=== PATIENT | female | born 1955 | race Caucasian/White ===

== ENCOUNTER → 2018-03-11 | Outpatient (CLI) | payer MEDICAID ==
[~2018-03-11] MED LIST: AUGMENTIN 875 M1 TA1 PO; AUGMENTIN 875875 MG PO; B12,B-12,B 12500 MCG PO; CELEXA20 MG PO; CIPRO250 MG PO; CIPROFLOXACIN500 MG PO; Carafate1 GM/10 ML PO; DICLOFENAC POTA50 MG PO; DICLOFENAC SOD75 MG PO; DIPHENHYDRAMINE50 MG PO; FEOSOL300 MG PO; GEMFIBROZIL600 MG PO; GLIPIZIDE5 MG PO; KEFLEX500 MG PO; LEXAPRO20 MG PO; MAXALT MLT PO; MAXALT-MLT10 MG PO; METFORMIN1000 MG PO; MIRTAZAPINE15 M1 PO; MOTRIN800 MG PO; PHENERGAN25 M1 PO; PRAVASTATIN SOD20 MG PO; PRENATAL1 TA7 PO; PROTONIX TR40 MG PO; PROVIGIL200 MG PO; SYNTHROID,LEVO25 MCG PO; VOLTAREN75 MG PO
== END | disposition home or self-care (01) ==
LOC: MAMMO 08:12
DX: Z12.31 Encounter for screening mammogram for malignant neoplasm of breast (principal)

== ENCOUNTER 2018-10-08 20:23 | Inpatient (IN) | payer OTHER ==
--- NOTE | ~2018-10-08 | EKG ---
[place], [place] ELECTROCARDIOGRAM REPORT NAME: FOREST JUAREZ UNIT #: [id number] ROOM: 407 DOCTOR: IVELISSE DRAFT REPORT BIRTHDATE: [birth year] [facility] Test Date: 2018-10-08 Test Time: 20:39:05 Pat Name: FOREST JUAREZ Department: Room: 407 Gender: F Art Specialist: Carlos Neves : 1955 Requested By: MERLIN URENA PA-C Order Number: [id number] Reading MD: Angel Houston Measurements Intervals [place] Rate: 71 P: 65 PA: 183 QRS: 45 QRSD: 115 T: 52 QT: 388 QTc: 422 Interpretive Statements Sinus rhythm Nonspecific intraventricular conduction delay Electronically Signed On 10-15-2018 7:27:47 PST by Angel Houston CM:EKGRPT:ELECTROCARDIOGRAM REPORT [id number] MERLIN URENA PA-C EPIPHANY DRAFT REPORT MERLIN URENA PA-C
[~2018-10-08 20:23] MED LIST changes: +GLUCOPHAGE500 M1 PO; -METFORMIN1000 MG PO
[2018-10-08 20:25] VITALS: BP 128/68
[2018-10-08 21:00] LABS: BASO # 0.1 10*3/uL (0.0-0.1); BASO % 1.1 % (0.0-1.0); EOS # 0.3 10*3/uL (0.0-0.4); EOS % 3.4 % (1.0-4.0); HEMOGLOBIN 14.7 g/dl (12.0-16.0); LYMPH # 3.2 10*3/uL (1.3-4.4); LYMPH % 35.8 % (27.0-41.0); MEAN CELL VOLUME 89.4 fl (81.0-99.0); MEAN CORPUSCULAR HGB 29.9 pg (27.0-31.0); MEAN CORPUSCULAR HGB CONC 33.4 g/dl (33.0-37.0); MONO # 0.5 10*3/uL (0.1-1.0); MONO % 5.4 % (3.0-9.0); NEUT # 4.8 10*3/uL (2.3-7.9); PLATELET COUNT AUTOMATED 350 10*3/uL (130-400); RED BLOOD COUNT 4.92 10*6/uL (4.10-5.10); RED CELL DISTRI WIDTH 12.4 % (0-14.5); WHITE BLOOD COUNT 8.9 10*3/uL (4.8-10.8)
--- NOTE | 2018-10-08 21:09 | NUR ---
NOTIFIED DR REBOLLEDO LACTIC ACID 4.8
[2018-10-08 21:10] LABS: ACT PARTIAL THROMBO TIME 21.2 SECONDS (20.8-31.5)
[2018-10-08 21:15] LABS: ALBUMIN 3.9 gm/dl (3.1-4.5); ALKALINE PHOSPHATASE 82 U/L (45-117); BUN 12 mg/dl (7-24); CHLORIDE 103 mmol/L (98-107); CREATININE 1.04 mg/dL (0.55-1.02); LIPASE 218 U/L (73-393); POTASSIUM 3.6 mmol/L (3.5-5.1); SGOT/AST 10 IU/L (3-35); SGPT/ALT 18 U/L (12-78); SODIUM 138 mmol/L (136-145); TOTAL PROTEIN 7.2 gm/dL (6.4-8.2)
[2018-10-08 21:22] LABS: TROPONIN I < 0.015 ng/ml (<0.045)
--- NOTE | 2018-10-08 21:25 | NUR ---
PER MD REBOLLEDO PT FLUID RATE OF NS INCREASED TO 999ML/HR.
[2018-10-08 21:28] VITALS: BP 134/66
[2018-10-08 21:35] LABS: BILIRUBIN NEGATIVE (NEGATIVE); BLOOD NEGATIVE (NEGATIVE); CLARITY SL CLOUDY (CLEAR); COLOR YELLOW (YELLOW); GLUCOSE NEGATIVE (NEGATIVE); KETONE TRACE (NEGATIVE); LEUKO ESTERASE NEGATIVE (NEGATIVE); NITRITE NEGATIVE (NEGATIVE); PH 5.5 (5.0-9.0); SPECIFIC GRAVITY >= 1.030 (1.005-1.030); UROBILINOGEN 0.2 E.U./dl (0.2-1.0)
[2018-10-08 21:51] LABS: BACTERIA TRACE
[2018-10-08 21:52] LABS: CALCIUM OXALATE CRYSTALS 1+; MUCOUS 1+
[2018-10-08 22:41] VITALS: BP 113/42
--- NOTE | 2018-10-08 23:15 | NUR ---
PT 2 HOUR LACTIC LEVEL RESULT IS 3.6 PER LAB.MD NOTIFIED.
[2018-10-08 23:30] VITALS: BP 120/70
--- NOTE | 2018-10-08 23:30 | NUR ---
PT PROVIDED BOX LUNCH PER MD VERBAL ORDER.
--- NOTE | 2018-10-08 23:50 | NUR ---
PT UNSURE OF MEDICATIONS AND DOSES.
[2018-10-09] VITALS: BP 129/61
--- NOTE | 2018-10-09 00:05 | NUR ---
A 63, admitted to , under the services of NAHID Tamez DO with a diagnosis of NEAR SYNCOPE. Chief complaint is PT WAS LINE DANCING FELT DIZZY WITH HOT//COLD SWEATS. Patient arrived via bed from ER. Monitor applied. Initial assessment completed. Vital signs taken and recorded. NAHID TAMEZ DO notified of admission to the unit. Orders received. See assessment for past medical history, medications and allergies. Patient and/or family oriented to unit. [facility] visitation policy reviewed. Clothing/patient valuable form completed. RENAE SANDERSON R
--- NOTE | 2018-10-09 01:20 | NUR ---
PATIENT DOES NOT KNOW HOME MEDICATIONS. WILL NEED TO CALL NACHO GONZALES IN [facility] IN AM
--- NOTE | 2018-10-09 01:27 | NUR ---
PATIENT HAD NEGATIVE SET OF ORTHOS AT THIS TIME
--- NOTE | 2018-10-09 01:32 | NUR ---
NOTIFIED DR CHIN OF PATIENTS LA 3.2 AND THAT PATIENT DOES NOT KNOW HOME MEDICATIONS.
[2018-10-09] MEDS ORDERED: DONEPEZIL HCL10 MG PO (01:34)
--- NOTE | 2018-10-09 02:16 | NUR ---
PATIENT MEDICATED WITH PRN ZOFRAN ORDERED FOR NAUSEA
[2018-10-09 04:11] LABS: BASO # 0.1 10*3/uL (0.0-0.1); BASO % 0.8 % (0.0-1.0); EOS # 0.3 10*3/uL (0.0-0.4); HEMATOCRIT 38.2 % (37.0-47.0); LYMPH # 3.8 10*3/uL (1.3-4.4); LYMPH % 38.1 % (27.0-41.0); MEAN CELL VOLUME 89.7 fl (81.0-99.0); MEAN CORPUSCULAR HGB 30.5 pg (27.0-31.0); MEAN PLATELET VOLUME 8.8 fl (9.6-12.3); MONO # 0.7 10*3/uL (0.1-1.0); NEUT % 50.9 % (47.0-73.0); PLATELET COUNT AUTOMATED 328 10*3/uL (130-400); RED BLOOD COUNT 4.26 10*6/uL (4.10-5.10); RED CELL DISTRI WIDTH 12.4 % (0-14.5); WHITE BLOOD COUNT 9.9 10*3/uL (4.8-10.8)
[2018-10-09 04:19] LABS: INTERNATIONAL NORM RATIO 0.9 (2.0-3.5)
[2018-10-09 04:30] LABS: ALBUMIN 3.4 gm/dl (3.1-4.5); ALKALINE PHOSPHATASE 70 U/L (45-117); BUN 11 mg/dl (7-24); CHLORIDE 106 mmol/L (98-107); CHOLESTEROL 165 mg/dL (<200); CREATININE 0.72 mg/dL (0.55-1.02); HDL CHOLESTEROL 45 mg/dl (40-60); LDL CHOLESTEROL 59 mg/dL (9-159); PHOSPHOROUS 3.6 mg/dL (2.5-4.9); POTASSIUM 3.8 mmol/L (3.5-5.1); SGOT/AST 10 IU/L (3-35); SGPT/ALT 15 U/L (12-78); SODIUM 142 mmol/L (136-145); TOTAL PROTEIN 6.3 gm/dL (6.4-8.2); TRIGLYCERIDES 306 mg/dl (<150); VLDL CHOLESTEROL 61 mg/dL (6-40)
--- NOTE | 2018-10-09 04:30 | NUR ---
PATIENT SLEEPING. NO S/S OF DISTRESS NOTED AT THIS TIME. BED IN LOW POSITION. IVF MAINTAINED PER ORDER. CALL LIGHT IN REACH
[2018-10-09 07:36] LABS: VITAMIN D, 25-HYDROXY 59.8 ng/mL (30-100)
[2018-10-09 08:00] VITALS: BP 108/75
--- NOTE | 2018-10-09 08:22 | NUR ---
ATTEMPTED TO CALL [facility] TO VERIFY PTS HOME MEDICATIONS. PER RECORDING THEY WON'T OPEN UNTIL 0900
--- NOTE | 2018-10-09 08:39 | NUR ---
24 HR CHART CHECK COMPLETE
[2018-10-09] MEDS ORDERED: FLONASE ALLERG9.9 ML NAS (09:36)
[2018-10-09] MEDS ORDERED: VITAMIN D35000 UNIT PO (09:36)
--- NOTE | 2018-10-09 09:38 | NUR ---
PTS HOME MEDICATIONS VERIFIED WITH PHARMACIST FROM [facility]. DR MARTINEZ INFORMED
[2018-10-09 12:00] VITALS: BP 110/76
[2018-10-09 16:00] VITALS: BP 124/61
[2018-10-09 20:00] VITALS: BP 121/51
[2018-10-10] VITALS: BP 134/73
[2018-10-10 08:00] VITALS: BP 144/60
--- NOTE | 2018-10-10 11:15 | NUR ---
PT C/O DIZZINESS, WEAKNESS AND DRY MOUTH. BLOOD SUGAR 119. ORTHOSTATIC BP WITHIN NORMAL LIMITS. DR MARTINEZ INFORMED.
[2018-10-10 12:00] VITALS: BP 155/60
--- NOTE | 2018-10-10 13:49 | NUR ---
PHYSICAL THERAPY PT EVAL COMPLETED TODAY: FULL EVALUAITON TO FOLLOW. RECOMMEND PT WHILE HERE TO ADDRESS DECREASED ENDURANCE, STRENGTH AND BALANCE. PT EVAL IS MODERATE COMPLEXITY BASED ON CHART REVIEW, TEST RESULTS AND EVALUATION: 14999. D/C RECOMMENDATIONS ARE HOME WITH HOME PT. THANK YOU FOR REFERRAL TALAT GOLDMAN PT
[2018-10-10 16:00] VITALS: BP 130/66
[2018-10-10 20:00] VITALS: BP 111/56
[2018-10-11] VITALS: BP 111/56; BP 142/60
[2018-10-11 08:00] VITALS: BP 110/66
--- NOTE | 2018-10-11 09:00 | NUR ---
Help Desk Assistant in to talk to patient. Patient states lives at home with boyfriend. There are few steps in the home. Physician: sridhar ku Pharmacy: [facility] health services: none Patient's level of ADLs: INDEPENDENT Patient has working utilities: all working DME: none Follow-up physician's appointment after d/c: will be made by hospitalist nurse director upon discharge Does patient want to access PORTAL?: no Discharge plan discussed with patient patient states she lives at home with her boyfriend, she states she is independent in adls and ambulation, drives, patient states she will be going home when able and denies any home needs. EDWIGE MORALES
[2018-10-11 12:00] VITALS: BP 132/52
--- NOTE | 2018-10-11 16:02 | NUR ---
PHYSICAL THERAPY Patient presented to therapy in standing exiting restroom with report of no dizziness or feeling faintness. Patient says she is feeling much better. Patient agrees to therapy session. Patient was identified by name and . Patient performed ambulation 400' x 1 with no assistive device and Close Supervision with no LOB, dizziness, or other symptoms. Patient transferred back to supine in bed with head of bed elevated, call light within reach, and patient's boyfriend in room visiting with patient. Patient was 1:1 with this REJECT OPENER AND FILLER for 12 minutes total. Patient ambulates throughout room during the day Independently. KATIE HERNADEZ REJECT OPENER AND FILLER
--- NOTE | 2018-10-11 16:40 | NUR ---
PATIENT DISCHARGED TO HOME. ALL PERSONAL BELONGINGS SENT WITH PATIENT. IV AND RETAIL ADMINISTRATIVE ASSISTANT DISCONTINUED. DISCHARGE INSTRUCTIONS GIVEN AND REVIEWED WITH PATIENT.
--- NOTE | 2018-10-12 07:51 | NUR ---
PHYSICAL THERAPY CO-SIGN I approve of the Phyical Therapy notes written above. MISSY ALFARO PT
[2019-03-04] MEDS ORDERED: MACROBID100 M1 PO (21:36)
== END 2018-10-11 16:40 | disposition home or self-care (01) | DRG 683 ==
LOC: ED 20:23 → EDHOLD 23:32 → 4E 23:32
PROVIDERS: Emergency Medicine Emergency Medical Services; Student in an Organized Health Care Education/Training Program; ADMIT Internal Medicine
DX: N17.0 Acute kidney failure with tubular necrosis (principal); E87.2 Acidosis; E03.9 Hypothyroidism, unspecified; E11.65 Type 2 diabetes mellitus with hyperglycemia; G43.909 Migraine, unspecified, not intractable, without status migrainosus; R03.0 Elevated blood-pressure reading, without diagnosis of hypertension; R41.3 Other amnesia; Z79.84 Long term (current) use of oral hypoglycemic drugs; Z79.899 Other long term (current) drug therapy

== ENCOUNTER → 2020-12-11 | Outpatient (CLI) | payer OTHER ==
[~2020-12-11] MED LIST changes: +AMOXICILLIN500 M2 PO; +DONEPEZIL HCL10 MG PO; +FLONASE ALLERG9.9 ML NAS; +IBUPROFEN600 MG PO; +MACROBID100 M1 PO; +VITAMIN D35000 UNIT PO
== END | disposition home or self-care (01) ==
LOC: MAMMO 11-20 15:00
PROVIDERS: ATTEND Internal Medicine
DX: Z12.31 Encounter for screening mammogram for malignant neoplasm of breast (principal)

== ENCOUNTER 2020-12-18 18:29 | Emergency (ER) | payer OTHER ==
[~2020-12-18] VITALS: Wt 61.2 kg
[~2020-12-18 18:29] MED LIST changes: -AMOXICILLIN500 M2 PO; -IBUPROFEN600 MG PO
[2020-12-18 18:33] VITALS: BP 137/78
[2020-12-18] MEDS ORDERED: IBUPROFEN600 MG PO (19:29)
[2020-12-18] MEDS ORDERED: AMOXICILLIN500 M2 PO (19:29)
== END 2020-12-18 20:10 | disposition home or self-care (01) ==
LOC: ED 18:29
DX: K08.89 Other specified disorders of teeth and supporting structures (principal); Z90.89 Acquired absence of other organs; Z79.899 Other long term (current) drug therapy

== ENCOUNTER → 2021-02-14 | Outpatient (CLI) | payer OTHER ==
[~2021-02-14] MED LIST changes: +AMOXICILLIN500 M2 PO; +IBUPROFEN600 MG PO
== END | disposition home or self-care (01) ==
LOC: RAD 13:41
PROVIDERS: ATTEND Internal Medicine
DX: M51.34 Other intervertebral disc degeneration, thoracic region (principal); M51.37 Other intervertebral disc degeneration, lumbosacral region; M43.14 Spondylolisthesis, thoracic region; M43.16 Spondylolisthesis, lumbar region; M43.17 Spondylolisthesis, lumbosacral region; M48.04 Spinal stenosis, thoracic region; M85.88 Other specified disorders of bone density and structure, other site; M25.78 Osteophyte, vertebrae; M41.86 Other forms of scoliosis, lumbar region; M48.07 Spinal stenosis, lumbosacral region

== ENCOUNTER 2022-01-16 21:19 | Emergency (ER) | payer OTHER ==
[~2022-01-16] VITALS: Ht 165.1 cm; Wt 65.8 kg
[2022-01-16 21:58] VITALS: BP 150/57
[2022-01-16] MEDS ORDERED: LEVOTHYROXINE25 MCG PO (22:00)
[2022-01-16] MEDS ORDERED: ZESTRIL10 MG PO (22:00)
[2022-01-16] MEDS ORDERED: MELOXICAM15 MG PO (22:01)
[2022-01-16] MEDS ORDERED: PRAVASTATIN SOD40 MG PO (22:01)
[2022-01-16] MEDS ORDERED: OXYBUTYNIN ER15 MG PO (22:01)
[2022-01-16 22:50] LABS: BILIRUBIN Negative (Negative); BLOOD Negative (Negative); CLARITY Clear (Clear); COLOR Yellow (Yellow); GLUCOSE 3+ (Negative); KETONE Negative (Negative); LEUKO ESTERASE Negative (Negative); NITRITE Negative (Negative); PH 6.5 (4.5-8.0); SPECIFIC GRAVITY 1.015 (1.001-1.030)
[2022-01-16 23:01] LABS: BACTERIA TRACE; EPITHELIAL CELLS 0-2; RBC 0-2 rbc/hpf (0-2)
[2022-01-17] MEDS ORDERED: AMOXICILLIN500 M3 PO (01:34)
== END 2022-01-17 01:38 | disposition home or self-care (01) ==
LOC: ED 21:19
PROVIDERS: Emergency Medicine
DX: J02.9 Acute pharyngitis, unspecified (principal); R10.2 Pelvic and perineal pain; R07.89 Other chest pain; Z79.899 Other long term (current) drug therapy; Z90.89 Acquired absence of other organs

== ENCOUNTER → 2022-01-29 | Outpatient (CLI) | payer MEDICARE, OTHER ==
[~2022-01-29] MED LIST changes: +AMOXICILLIN500 M3 PO; +LEVOTHYROXINE25 MCG PO; +MELOXICAM15 MG PO; +OXYBUTYNIN ER15 MG PO; +PRAVASTATIN SOD40 MG PO; +ZESTRIL10 MG PO
== END | disposition home or self-care (01) ==
LOC: US 14:48
PROVIDERS: ATTEND Nurse Practitioner Women's Health
DX: R93.89 Abnormal findings on diagnostic imaging of other specified body structures (principal); R14.0 Abdominal distension (gaseous)

== ENCOUNTER 2022-07-18 15:19 | Emergency (ER) | payer MEDICARE, OTHER ==
[~2022-07-18] VITALS: Wt 68.0 kg
[2022-07-18 16:02] LABS: MEAN CELL VOLUME 89.9 fl (81.0-99.0); MEAN CORPUSCULAR HGB 30.3 pg (27.0-31.0); MEAN CORPUSCULAR HGB CONC 33.8 g/dl (33.0-37.0); MEAN PLATELET VOLUME 8.8 fl (9.6-12.3); PLATELET COUNT AUTOMATED 258 10*3/uL (130-400); RED BLOOD COUNT 4.45 10*6/uL (4.10-5.10); RED CELL DISTRI WIDTH 12.1 % (0-14.5); WHITE BLOOD COUNT 10.9 10*3/uL (4.8-10.8)
[2022-07-18 16:17] LABS: ALKALINE PHOSPHATASE 63 U/L (45-117); BUN 16 mg/dl (7-24); CHLORIDE 101 mmol/L (98-107); CREATININE 1.04 mg/dL (0.55-1.02); LIPASE 174 U/L (73-393); POTASSIUM 3.9 mmol/L (3.5-5.1); SGPT/ALT 26 U/L (12-78); SODIUM 132 mmol/L (136-145)
[2022-07-18 16:21] LABS: MANUAL DIFF REFLEX YES
[2022-07-18] MEDS ORDERED: WAKIX17.8 MG PO (16:24)
[2022-07-18] MEDS ORDERED: ARTHRITIS PAIN650 M3 PO (16:25)
[2022-07-18] MEDS ORDERED: FLUONAZOLE150 M1 PO (16:25)
[2022-07-18 16:26] LABS: BILIRUBIN Negative (Negative); BLOOD Negative (Negative); CLARITY Clear (Clear); COLOR Yellow (Yellow); GLUCOSE 3+ (Negative); KETONE Negative (Negative); LEUKO ESTERASE Negative (Negative); NITRITE Negative (Negative); PH 5.5 (4.5-8.0); UROBILINOGEN 0.2 E.U./dl (0.0-1.0)
[2022-07-18] MEDS ORDERED: METFORMIN HYDR500 MG PO (16:26)
[2022-07-18 16:27] LABS: ACT PARTIAL THROMBO TIME 25.1 SECONDS (20.0-32.1)
[2022-07-18] MEDS ORDERED: GLIPIZIDE5 MG PO (16:27)
[2022-07-18 16:32] LABS: BACTERIA TRACE; EPITHELIAL CELLS 0-2; RBC 0-2 rbc/hpf (0-2); WBC 0-2 wbc/hpf (0-5)
[2022-07-18 16:51] LABS: PLATELET SUFFICIENCY NORMAL (NORMAL); TOTAL CELLS COUNTED 100 #CELLS; VACUOLATION OF NEUTROPHILS SLIGHT
[2022-07-18 21:04] VITALS: BP 127/65
== END 2022-07-18 21:54 | disposition home or self-care (01) ==
LOC: ED 15:19
PROVIDERS: Family Medicine
DX: B34.9 Viral infection, unspecified (principal); Z20.822 Contact with and (suspected) exposure to COVID-19; R21 Rash and other nonspecific skin eruption; L29.9 Pruritus, unspecified; E11.65 Type 2 diabetes mellitus with hyperglycemia; G43.909 Migraine, unspecified, not intractable, without status migrainosus; M19.90 Unspecified osteoarthritis, unspecified site; R79.82 Elevated C-reactive protein (CRP); R74.02 Elevation of levels of lactic acid dehydrogenase [LDH]; Z79.899 Other long term (current) drug therapy; Z90.89 Acquired absence of other organs; Z98.890 Other specified postprocedural states

== ENCOUNTER → 2022-10-14 | Outpatient (CLI) | payer OTHER ==
[~2022-10-14] MED LIST changes: +ARTHRITIS PAIN650 M3 PO; +FLUONAZOLE150 M1 PO; +METFORMIN HYDR500 MG PO; +VITAMIN D3125 MC1 PO; +WAKIX17.8 MG PO
== END | disposition home or self-care (01) ==
LOC: CARD 01:41
PROVIDERS: ATTEND Internal Medicine Cardiovascular Disease
DX: R07.89 Other chest pain (principal)

== ENCOUNTER → 2023-08-18 | Outpatient (CLI) | payer OTHER ==
[~2023-08-18] MED LIST changes: +NITROFURANTOIN100 M9 PO; +XYWAV 0.50.5 GM/1 M PO; +ZITHROMAX TRI-500 M1 PO
== END | disposition home or self-care (01) ==
LOC: MAMMO 13:29
PROVIDERS: ATTEND Internal Medicine
DX: Z12.31 Encounter for screening mammogram for malignant neoplasm of breast (principal); R92.30 Dense breasts, unspecified

== ENCOUNTER → 2024-02-15 | Outpatient (CLI) | payer MEDICARE, OTHER ==
[~2024-02-15] MED LIST changes: +Regadenoson 0.4 MG/5 ML SYR IV ONE; +TRINTELLIX10 MG PO
== END | disposition home or self-care (01) ==
LOC: CARD 01:04
PROVIDERS: ATTEND Internal Medicine Cardiovascular Disease
DX: I10 Essential (primary) hypertension (principal); R01.1 Cardiac murmur, unspecified; R07.89 Other chest pain; E78.5 Hyperlipidemia, unspecified; R94.39 Abnormal result of other cardiovascular function study

== ENCOUNTER → 2024-04-06 | Outpatient (CLI) | payer MEDICARE, OTHER ==
[~2024-04-06] MED LIST changes: -Regadenoson 0.4 MG/5 ML SYR IV ONE
[2024-04-06 08:44] LABS: HEMATOCRIT 39.6 % (37.0-47.0); MEAN CELL VOLUME 90.6 fl (81.0-99.0); MEAN CORPUSCULAR HGB 29.7 pg (27.0-31.0); MEAN CORPUSCULAR HGB CONC 32.8 g/dl (33.0-37.0); MEAN PLATELET VOLUME 8.8 fl (9.6-12.3); RED BLOOD COUNT 4.37 10*6/uL (4.10-5.10); RED CELL DISTRI WIDTH 12.5 % (0-14.5); WHITE BLOOD COUNT 6.3 10*3/uL (4.8-10.8)
[2024-04-06 09:12] LABS: ALKALINE PHOSPHATASE 47 U/L (46-116); BUN 11 mg/dl (9-23); CHLORIDE 107 mmol/L (98-107); CHOLESTEROL 144 mg/dL (<200); FREE T4 1.35 ng/dl (0.89-1.76); LDL CHOLESTEROL 59 mg/dL (9-159); POTASSIUM 3.9 mmol/L (3.4-5.1); SGPT/ALT 9 U/L (5-49); TOTAL PROTEIN 6.5 gm/dL (6.0-8.0); TRIGLYCERIDES 131 mg/dl (<150)
[2024-04-06 09:55] LABS: VITAMIN D, 25-HYDROXY 117.6 ng/mL (30-100)
[2024-04-07 05:07] LABS: HBSAG Negative (Negative); HEP B CORE AB, IGM Negative (Negative); HEPATITIS C ANTIBODY Non Reactive (Non Reactive)
== END | disposition home or self-care (01) ==
LOC: LAB 08:22
PROVIDERS: ATTEND Family Medicine
DX: E78.00 Pure hypercholesterolemia, unspecified (principal); E74.9 Disorder of carbohydrate metabolism, unspecified; E55.9 Vitamin D deficiency, unspecified; R51.9 Headache, unspecified; G31.84 Mild cognitive impairment of uncertain or unknown etiology; R53.82 Chronic fatigue, unspecified; M79.10 Myalgia, unspecified site

== ENCOUNTER → 2024-05-17 | Outpatient (CLI) | payer MEDICARE, OTHER ==
[2024-05-17 07:47] LABS: MEAN CELL VOLUME 90.3 fl (81.0-99.0); MEAN CORPUSCULAR HGB CONC 33.3 g/dl (33.0-37.0); MEAN PLATELET VOLUME 8.8 fl (9.6-12.3); RED BLOOD COUNT 4.43 10*6/uL (4.10-5.10); RED CELL DISTRI WIDTH 12.4 % (0-14.5); WHITE BLOOD COUNT 7.2 10*3/uL (4.8-10.8)
[2024-05-17 08:18] LABS: ALKALINE PHOSPHATASE 50 U/L (46-116); BUN 10 mg/dl (9-23); CHLORIDE 103 mmol/L (98-107); CPK 83 U/L (34-171); FREE T4 1.25 ng/dl (0.89-1.76); POTASSIUM 4.1 mmol/L (3.4-5.1); SGPT/ALT 9 U/L (5-49); TOTAL PROTEIN 6.7 gm/dL (6.0-8.0)
== END | disposition home or self-care (01) ==
LOC: LAB 01:49
PROVIDERS: ATTEND Family Medicine
DX: E03.9 Hypothyroidism, unspecified (principal); E74.9 Disorder of carbohydrate metabolism, unspecified; E78.00 Pure hypercholesterolemia, unspecified

== ENCOUNTER → 2024-10-05 | Outpatient (CLI) | payer MEDICARE, OTHER ==
[2024-10-05 07:32] LABS: MEAN CELL VOLUME 92.4 fl (81.0-99.0); MEAN CORPUSCULAR HGB 29.6 pg (27.0-31.0); MEAN CORPUSCULAR HGB CONC 32.1 g/dl (33.0-37.0); RED BLOOD COUNT 4.22 10*6/uL (4.10-5.10); RED CELL DISTRI WIDTH 12.8 % (0-14.5); WHITE BLOOD COUNT 6.1 10*3/uL (4.8-10.8)
[2024-10-05 08:23] LABS: ALKALINE PHOSPHATASE 52 U/L (46-116); BUN 13 mg/dl (9-23); CHLORIDE 105 mmol/L (98-107); CHOLESTEROL 163 mg/dL (<200); CPK 53 U/L (34-171); LDL CHOLESTEROL 81 mg/dL (9-159); POTASSIUM 4.4 mmol/L (3.4-5.1); TOTAL PROTEIN 6.2 gm/dL (6.0-8.0); TRIGLYCERIDES 91 mg/dl (<150)
[2024-10-05 08:36] LABS: SGPT/ALT < 7 U/L (5-49)
[2024-10-05 17:22] LABS: FREE T4 1.26 ng/dl (0.89-1.76)
== END | disposition home or self-care (01) ==
LOC: LAB 07:07
PROVIDERS: ATTEND Family Medicine
DX: I10 Essential (primary) hypertension (principal); E78.00 Pure hypercholesterolemia, unspecified; E74.9 Disorder of carbohydrate metabolism, unspecified; M25.50 Pain in unspecified joint; M79.10 Myalgia, unspecified site; F41.1 Generalized anxiety disorder; E74.00 Glycogen storage disease, unspecified

== ENCOUNTER → 2024-10-18 | Outpatient (CLI) | payer MEDICARE, OTHER ==
[2024-10-18 15:42] LABS: ALKALINE PHOSPHATASE 52 U/L (46-116); BUN 12 mg/dl (9-23); CHLORIDE 102 mmol/L (98-107); POTASSIUM 4.2 mmol/L (3.4-5.1); SGPT/ALT 7 U/L (5-49); TOTAL PROTEIN 6.8 gm/dL (6.0-8.0)
== END | disposition home or self-care (01) ==
LOC: LAB 14:43
PROVIDERS: ATTEND Family Medicine
DX: E74.9 Disorder of carbohydrate metabolism, unspecified (principal); E83.52 Hypercalcemia; R76.0 Raised antibody titer; E77.9 Disorder of glycoprotein metabolism, unspecified; Z79.899 Other long term (current) drug therapy

== ENCOUNTER → 2025-01-04 | Outpatient (CLI) | payer MEDICARE, OTHER | END | disposition home or self-care (01) | LOC: LAB 11:16 | PROVIDERS: ATTEND Family Medicine | DX: E78.5 Hyperlipidemia, unspecified (principal) ==